=== PATIENT | male | born 1990 | race Caucasian/White ===

== ENCOUNTER 2024-08-08 14:34 | Emergency (ER) | payer BC ==
[~2024-08-08] VITALS: Ht 177.8 cm; Wt 90.3 kg
[2024-08-08] MEDS ORDERED: FAMOTIDINE/PF INJ 20 MG/2 ML VIAL IV ONE (15:39)
[2024-08-08] MEDS ORDERED: MAG HYDROX/AL HYDROX/SIMETH 30 ML UDC ONE (15:39)
[2024-08-08] MEDS ORDERED: ACETAMINOPHEN ES 500 MG TABLET ONE (15:39)
[2024-08-08] MEDS: FAMOTIDINE/PF INJ 20 MG/2 ML VIAL IV ONE (15:42)
[2024-08-08] MEDS: ACETAMINOPHEN ES 500 MG TABLET PO ONE (15:42)
[2024-08-08] MEDS: MAG HYDROX/AL HYDROX/SIMETH 30 ML UDC PO ONE (15:42)
[2024-08-08 15:45] LABS: BASOPHILS % (AUTO) 0.5 % (0.0-2.0); EOSINOPHILS # (AUTO) 0.4 K/uL (0.0-0.7); EOSINOPHILS % (AUTO) 5.1 % (0.0-6.0); HEMATOCRIT 46 % (39-51); HEMOGLOBIN 15.7 g/dL (13.5-17.5); LYMPHOCYTES # (AUTO) 2.4 K/uL (0.8-4.8); MEAN CORPUSCULAR HEMOGLOBIN 29 PG (26.0-33.0); MEAN CORPUSCULAR HGB CONC 35 g/dl (31.0-36.0); MEAN CORPUSCULAR VOLUME 84 fL (80-96); MONOCYTES # (AUTO) 0.5 K/uL (0.1-1.30); MONOCYTES % (AUTO) 7.1 % (2.0-12.0); NEUTROPHILS # (AUTO) 4.3 K/uL (1.8-8.9); NEUTROPHILS % (AUTO) 56.3 % (43.0-81.0); PLATELET COUNT (AUTO) 215 K/uL (150-450); RED BLOOD CELL COUNT(AUTO) 5.45 MIL/uL (4.5-6.0); RED CELL DISTRIBUTION WIDTH 13.4 % (11.5-15.0); WHITE BLOOD COUNT (AUTO) 7.7 K/uL (4.3-11.0)
[2024-08-08 15:56] LABS: CALCIUM, SERUM 10.1 mg/dL (8.5-10.1); CREATININE 0.9 mg/dL (0.6-1.3); POTASSIUM 4.2 mmol/L (3.5-5.1)
[2024-08-08 16:01] LABS: ALBUMIN 3.8 g/dL (3.4-5.0); BILIRUBIN,DIRECT 0.1 mg/dL (0.0-0.2); BILIRUBIN,TOTAL 0.4 mg/dL (0.2-1.0)
[2024-08-08] MEDS ORDERED: OMEP20TA20 PO (16:39)
[2024-08-08 16:52] VITALS: BP 133/70; TEMP 98.5; O2SAT 98
== END 2024-08-08 16:53 | disposition home or self-care (01) ==
LOC: ER 14:36
DX: R10.11 Right upper quadrant pain (principal); R74.01 Elevation of levels of liver transaminase levels; F17.200 Nicotine dependence, unspecified, uncomplicated; Z79.899 Other long term (current) drug therapy
CPT/HCPCS: 99285; 96374; 76705; 85025; 80048; 83690; 80076; 36415; J3490